=== PATIENT | male | born 1960 | race Caucasian/White ===

== ENCOUNTER → 2016-04-06 | Outpatient (CLI) | payer BC ==
[~2016-04-06] MED LIST: AMLODIPINE BESY10 MG PO; APAP500 PO; DIFLUCAN200 MG PO; HYDROCODONE-AP1 EAC6 PO; INVANZ 1GM/NS 101 GM IV; IRBESARTAN300 MG PO; LIPITOR10 MG PO; METOPROLOL SUCC50 MG PO
== END ==
LOC: CAT 06:32
DX: K65.1 Peritoneal abscess (principal); K57.90 Diverticulosis of intestine, part unspecified, without perforation or abscess without bleeding; I10 Essential (primary) hypertension; E78.00 Pure hypercholesterolemia, unspecified

== ENCOUNTER 2016-07-19 05:18 | Inpatient (IN) | payer BC ==
[~2016-07-19] VITALS: Ht 172.7 cm; Wt 110.3 kg
--- NOTE | ~2016-07-19 | O ---
[facility] [place] [address] OPERATIVE REPORT Name: DINORAH URIBE Room #: 200-I ADM IN M.R.#: [id number] Admission: 07/19/16 Attend Phys: Espinoza Stone MD Discharge: Date of : 64 Report #: [id number] THIS REPORT FOR: //name// CC: Keo Stone DATE OF SERVICE: 07/19/2016 PREOPERATIVE DIAGNOSES: Previous diverticulitis with perforation and abscess requiring multiple percutaneous drains and extensive antibiotic therapy. POSTOPERATIVE DIAGNOSES: Previous diverticulitis with perforation and abscess requiring multiple percutaneous drains and extensive antibiotic therapy. PROCEDURE: Laparoscopic sigmoid colectomy, laparoscopic primary suture repair of incarcerated umbilical hernia containing omentum. ANESTHESIA: General endotracheal anesthesia and local anesthetic. ESTIMATED BLOOD LOSS: 50 mL. SURGEON: Espinoza Stone MD CHEMICAL COMPOUNDER HELPER: Paul Matos MD and Alvaro Watts, medical student. ESTIMATED BLOOD LOSS: 50 mL. IV FLUIDS: See anesthesia record. URINE OUTPUT: 250 per Colindres catheter. DRAINS PLACED: None. FINDINGS: Indurated sigmoid colon with some scarring in the right lower abdomen to the anterior abdominal wall. End-to-end stapled anastomosis was performed. INDICATION FOR PROCEDURE: The patient is a very pleasant 55-year-old male patient with history of acute diverticulitis last year, requiring approximately 2 weeks of inpatient hospitalization as well as extensive outpatient IV antibiotic therapy and 2 separate percutaneous drains placed to control this infection at that time. He ultimately recovered and subsequent colonoscopy was unremarkable. The patient was desirous of sigmoid colectomy to prevent future episodes of acute diverticulitis. Detailed discussion of risks and benefits of the operation was held with the patient and all questions were answered to his satisfaction. Risks discussed included bleeding, pain, infection, anastomotic leak, stricture, recurrent diverticulitis, damage to surrounding structures [facility] [address] [place] [address] OPERATIVE REPORT Name: DINORAH URIBE Room #: 200-I [facility] IN ..#: [id number] Admission: 07/19/16 Attend Phys: Espinoza Stone MD Discharge: Date of : 64 Report #: [id number] such as small-bowel, colon, bladder, ureters, kidneys and other potentially unforeseen complications. Written informed consent was obtained. DESCRIPTION OF PROCEDURE: The patient was brought to the operating room and placed in a supine position. Timeout was taken to verify the patient's identity and to plan the procedure. SCDs were in place in the lower extremities bilaterally. Preoperative antibiotics were administered. The patient was placed in lithotomy position. Hair had been trimmed prior to bringing the patient back to the operating room from the intra-abdominal wall. Colindres catheter was placed in the operating room. Abdomen was sterilely prepped and draped in standard fashion. Right upper quadrant 5 mm incision was made after local anesthetic had been infiltrated. A 5-mm 0-degree laparoscope was utilized for direct optical entry. Pneumoperitoneum was created. Inspection of the viscera showed that no injury had occurred upon entry. A 5-mm subxiphoid port was placed in similar fashion after local anesthetic had been infiltrated. A right mid abdomen 12-mm port was placed in similar fashion. The omentum was noted to be adherent to the anterior abdominal wall as well as to the redundant sigmoid colon, which was looped over into the right lower quadrant. This was taken down using blunt dissection and Sonicision energy device down to the level of the pelvis. The anterior abdominal wall fat pad was also taken down toward the pelvis during this portion of the dissection. Once the omentum and colon had been adequately dissected free in the lower abdomen, the patient was placed in the Trendelenburg left side up position. A 5-mm left upper quadrant incision was also made and a 5-mm port was placed under direct visualization. The sigmoid colon was then freed from surrounding structures including the lateral peritoneal attachments namely the white line of Toldt from inferior to superior. The site of previous diverticulitis was carefully examined and was noted to be indurated without any obvious active infection. A site distal to this at approximately the rectosigmoid junction was selected and a window was made in the mesocolon at this location using the EnSeal device and Sonicision device as well as blunt dissection with a [place] dissector. Once the window had been made across this site, the distal transection was performed using Rosser linear cutting stapler with blue load 60-mm 2 firings. The mesocolon was then transected proximally using EnSeal device up to a site proximal to the diverticula. Careful examination of the colon was performed to verify that all diverticula were to be removed with the specimen as much as visually possible. A window was made in the mesocolon at the proximal transection site and Rosser linear cutting stapler was fired across the site. The mesocolon was further transected using EnSeal energy device. Specimen was then held in place with a grasper and the left upper quadrant 5-mm incision was enlarged to a 3-fingerbreadth diameter. The wound protector was placed in this site and specimen was removed from the left upper quadrant 3-fingerbreadth incision. The specimen was passed off for permanent analysis. Stitch was used to tamara distal. No obvious spillage was identified. Seal was placed over the wound protector and pneumoperitoneum was recreated. The descending colon was examined and this was freed up from further lateral [facility] [address] [place] [address] OPERATIVE REPORT Name: DINORAH URIBE Room #: 200-I ADM IN M.R.#: [id number] Admission: 07/19/16 Attend Phys: Espinoza Stone MD Discharge: Date of : 64 Report #: [id number] peritoneal attachments to create sufficient length that this lay easily in the pelvis next to the rectal stump. Sizer device was utilized to select a 33-mm EEA stapler, which was appropriately accommodate by the diameter of the rectum. The proximal transection margin was then brought out through the wound protector and electrocautery was utilized to create a colotomy. The Anvil was placed within this colostomy and was anchored in place using two 3-0 PDS purse-string sutures. This was placed back in the abdominal cavity and pneumoperitoneum was recreated. Collar Folder Operator then inserted the EEA stapler through the rectal canal and this was deployed through the rectal stump. The spike was then attached to the Anvil under direct vision after care was taken to ensure that no twisting of the descending colon had occurred. This was then fired and the stapler device along with the Anvil was removed from the anal canal. Examination of the anastomotic donut showed that 2 intact donuts had been removed. Inspection of the anastomotic site showed a small amount of oozing from the transected mesocolon, which was easily controlled with Sonicision energy device, but the anastomosis appeared well intact. Irrigation was placed in the pelvic cavity and the patient was placed in the reverse Trendelenburg position. Rigid sigmoidoscope was passed into the anal canal and insufflation of the colorectal anastomosis showed that no obvious air leak was visible. Further irrigation was then passed into the pelvic cavity and suctioned clear. Rigid sigmoidoscope was removed from the anal canal. Next, a PMI suture passer was utilized to close the small umbilical hernia, which the patient had complained of prior to the operation. This was approximately a 1-cm hernia defect at the level of the umbilicus that contained omentum that had been incarcerated and was easily visible upon beginning of the operation. This had been easily reduced with blunt traction with a grasper device. A stab incision was made at the umbilicus and #1 PDS [id number]-ej-[id number] suture was utilized to close this defect without difficulty. The 3-fingerbreadth left upper quadrant site was then closed using running #1 PDS in 2 layers. Insufflation was returned to the abdominal cavity and inspection from the anterior showed that this was well intact. The 12-mm port site in the right abdomen was removed and this site was closed at the level of the fascia using [id number]-[id number] #1 PDS suture as well. An area where the fat pad had been taken down extensively in the pelvis was tacked to the anterior abdominal wall using absorbable tacks to prevent herniation of bowel contents anterior to that fat pad. The anastomosis was again carefully examined and was noted to be well intact. Tisseel thrombin agent was then sprayed volume of 10 mL to cover the anastomosis. Hemostasis was again carefully verified. Pneumoperitoneum was then relieved and the 5-mm ports were then discontinued. The skin was closed at each of the incision sites using a skin marcela and sterile dressings were applied superficial to these. At this point, the case was ended, all instrumentation had been extracted and accounted for. All counts were correct [facility] [address] [place] [address] OPERATIVE REPORT Name: ECTON,DINORAH KARLA Room #: 200-I ADM IN M.R.#: [id number] Admission: 07/19/16 Attend Phys: Espinoza Stone MD Discharge: Date of : 64 Report #: [id number] per nursing report. The patient was extubated and taken to the postoperative care unit in stable condition. <ELECTRONICALLY SIGNED> By: Espinoza Stone MD 07/21/16 1136 1442 1621 Espinoza Stone MD /nt
--- NOTE | ~2016-07-19 | S ---
[facility] [place] [address] [place] [address] SURGICAL PATH RPT PROCEDURE Name: ABAD URIBE Room #: 200-I ADM IN M.R.#: [id number] Admission: 07/19/16 Date of : 64 Discharge: Report #: [id number] Path Case #: [id number] PATHOLOGY REPORT COLLECTION DATE: 07/19/2016 RECEIVED DATE: 07/19/2016 SUBMITTING PHYS: Dr. Espinoza Stone OTHER PHYS: Dr. Paul Joe SPECIMEN(S) RECEIVED: A.Sigmoid colon B.Anastomotic rings * * * * * * * * * * * * FINAL DIAGNOSIS: A. "Sigmoid colon," resection: - Diverticulosis with focal reactive changes, subserosal fibrosis, and serosal fibrous adhesions; history of diverticulitis. - Surgical margins without significant inflammation. B. "Anastomotic rings," re-anastomosis: - Colonic mucosa, submucosa, and muscular wall with reactive changes and vascular congestion. (CLW:; d/t: 07/21/16) PATHOLOGIST: Yadira Goodrich M.D. REPORT ELECTRONICALLY SIGNED BY: Yadira Goodrich M.D. DATE/TIME: 07/21/2016 16:23 * * * * * * * * * * * * GROSS PATHOLOGY: A. The specimen is received in formalin labeled "Abad Uribe, sigmoid colon, suture rodriguez distal end". Received is an oriented segment of colon measuring 17.8 cm in length and ranging in diameter from 1.7 to 3.2 cm. Both margins are stapled closed and a suture is present at one margin designating this as the distal aspect. The attached pericolic fat measures up to 3.8 cm in thickness. The serosal surface is pink-arango and smooth to slightly shaggy in appearance. The specimen is opened along the antimesenteric line to reveal light arango mucosa with normal architectural folds. Multiple diverticula are present; however, inflammation or hemorrhage is not grossly identified. Sectioning through the attached pericolic fat reveals no readily identifiable lymph nodes. The specimen is submitted representatively as follows: A1 proximal margin A2 distal margin [facility] [place] [address] SURGICAL PATH RPT PROCEDURE Name: ABAD URIBE Room #: 200-I ADM IN .R.#: [id number] Admission: 07/19/16 Date of : 64 Discharge: Report #: [id number] Path Case #: [id number] A3-A4 sales support representative sections of diverticula. B. The specimen is received in formalin labeled "Abad Uribe, anastomotic rings". Received are two anastomotic rings measuring 2.8 x 2.1 x 1.4 and 2.9 x 2.8 x 1.2 cm in greatest dimensions. Bushwalking Guide sections are submitted in cassette B1. (CAA; 07/20/2016) CLINICAL HISTORY: Diverticulitis, umbilical hernia INITIAL CPT CODE(S): A; 32578 B; 36628 Professional services performed by [facility] at [address] , [place] [address] Technical services performed by [facility] at [address] [place] [address], [address], [place] [address]. [facility] [address] [place] [address] PHONE: [phone] DIRECTOR: Eddy Woodard M.D. * * * END OF REPORT * * *
[~2016-07-19 05:18] MED LIST changes: +CO Q-10100 MG PO; +FLAGYL500 MG PO; +FLAX OIL1000 MG PO; +VITAMIN D31000 UNI2 PO
[2016-07-19 07:35] LABS: HEMATOCRIT 42.6 % (42.0-52.0); HEMOGLOBIN 14.9 gm/dL (14.0-18.0)
[2016-07-19 07:43] VITALS: BP 149/89
[2016-07-19 13:35] VITALS: BP 142/95
[2016-07-19 16:45] VITALS: BP 136/85
[2016-07-19 19:24] VITALS: BP 126/78
[2016-07-19 23:34] VITALS: BP 107/69
[2016-07-20 03:03] VITALS: BP 120/70
[2016-07-20 08:09] LABS: HEMOGLOBIN 13.1 gm/dL (14.0-18.0); MCH 30.8 pg (26.0-34.0); MCHC 34.4 g/dL (28.0-37.0); MCV 89.6 fL (80.0-100.0); RBC 4.24 mil/uL (4.50-6.00); RDW 13.8 % (10.5-14.5); WBC 12.2 thou/uL (4.0-11.0)
[2016-07-20 08:32] VITALS: BP 128/78
[2016-07-20 08:43] LABS: ALBUMIN 2.9 g/dL (3.4-5.0); CALCIUM 7.9 mg/dL (8.5-10.1); CREATININE 1.1 mg/dL (0.7-1.3); MAGNESIUM 2.2 mg/dL (1.8-2.4); PHOSPHORUS 3.3 mg/dL (2.5-4.9); POTASSIUM 4.1 mmol/L (3.5-5.1); TOTAL BILIRUBIN 0.7 mg/dL (<0.1-1.0); TOTAL PROTEIN 5.9 g/dL (6.4-8.2)
[2016-07-20 12:08] VITALS: BP 132/81
[2016-07-20 16:37] VITALS: BP 117/73
[2016-07-20 19:08] VITALS: BP 126/75
[2016-07-21 02:45] VITALS: BP 133/84
[2016-07-21 03:26] LABS: HEMATOCRIT 34.5 % (42.0-52.0); MCH 31.3 pg (26.0-34.0); MCHC 34.6 g/dL (28.0-37.0); MCV 90.5 fL (80.0-100.0); RBC 3.81 mil/uL (4.50-6.00); RDW 14.2 % (10.5-14.5); WBC 7.3 thou/uL (4.0-11.0)
[2016-07-21 03:55] LABS: ALBUMIN 2.8 g/dL (3.4-5.0); CALCIUM 8.2 mg/dL (8.5-10.1); CREATININE 1.1 mg/dL (0.7-1.3); POTASSIUM 3.7 mmol/L (3.5-5.1); TOTAL BILIRUBIN 0.4 mg/dL (<0.1-1.0); TOTAL PROTEIN 5.8 g/dL (6.4-8.2)
[2016-07-21 10:15] VITALS: BP 146/79
[2016-07-21] MEDS ORDERED: COLACE 100 MG100 MG PO (11:28)
[2016-07-21] MEDS ORDERED: IBUPROFEN 800800 M1 PO (11:28)
[2016-07-21] MEDS ORDERED: NEURONTIN 300300 M1 PO (11:28)
[2016-07-21] MEDS ORDERED: HYDROCODON-ACE1 EAC7 PO (11:28)
[2016-07-21 13:19] VITALS: BP 146/79
[2016-07-21 16:17] VITALS: BP 146/79
[2016-07-21 16:36] VITALS: BP 146/79
== END 2016-07-21 16:30 | disposition home or self-care (01) | DRG 330 ==
LOC: TBA 05:18 → OR 05:18 → 2N 13:44 → OR 14:44 → 2N 18:09
PROVIDERS: Otolaryngology
PROC: 0WQF4ZZ Repair Abdominal Wall, Percutaneous Endoscopic Approach (ICD-10-PCS; principal; 2016-07-19)
PROC: 0DBN4ZZ Excision of Sigmoid Colon, Percutaneous Endoscopic Approach (ICD-10-PCS; principal; 2016-07-19)
DX: K57.20 Diverticulitis of large intestine with perforation and abscess without bleeding (principal); K42.0 Umbilical hernia with obstruction, without gangrene; I10 Essential (primary) hypertension; F10.20 Alcohol dependence, uncomplicated; Y90.9 Presence of alcohol in blood, level not specified; E78.5 Hyperlipidemia, unspecified; F17.200 Nicotine dependence, unspecified, uncomplicated; E66.9 Obesity, unspecified; Z79.899 Other long term (current) drug therapy; Z82.49 Family history of ischemic heart disease and other diseases of the circulatory system; Z68.37 Body mass index [BMI] 37.0-37.9, adult
CPT/HCPCS: 10194; 50010; 50101; 50221; 50249; 50386; 50555; 50558; 50739; 50740; 50804; 50944; 50962; 50984; 51398; 51412; 51437; 51489; 52182; 52265; 54022; 54118; 56525; 56526; 56530; 57092; 62110; 62900; 70005

== ENCOUNTER 2020-11-13 12:03 | Emergency (ER) | payer BC ==
[~2020-11-13] VITALS: Ht 172.7 cm; Wt 111.1 kg
[~2020-11-13 12:03] MED LIST changes: +COLACE 100 MG100 MG PO; +HYDROCODON-ACE1 EAC7 PO; +IBUPROFEN 800800 M1 PO; +NEURONTIN 300300 M1 PO
[2020-11-13 12:41] LABS: ABSOLUTE NEUTROPHILS 6.8 thou/uL (1.4-8.2); EOSINOPHILS 0.7 % (0.0-3.0); HEMATOCRIT 44.9 % (42.0-52.0); HEMOGLOBIN 15.4 gm/dL (14.0-18.0); LYMPHOCYTES 17.7 % (24.0-44.0); MCHC 34.3 g/dL (28.0-37.0); MCV 93.2 fL (80.0-100.0); MONOCYTES 9.5 % (1.0-8.0); PLATELET COUNT 259 thou/uL (150-400); POLYS 71.1 % (36.0-66.0); RBC 4.82 mil/uL (4.50-6.00); RDW 13.3 % (10.5-14.5); WBC 9.6 thou/uL (4.0-11.0)
[2020-11-13 13:01] LABS: ANION GAP 9 mmol/L (7-16); BUN 16 mg/dL (7-18); CALCIUM 9.2 mg/dL (8.5-10.1); CHLORIDE 103 mmol/L (98-107); CO2 28 mmol/L (21-32); CREATININE 1.3 mg/dL (0.7-1.3); GLUCOSE 113 mg/dL (74-106); POTASSIUM 4.1 mmol/L (3.5-5.1); SODIUM 140 mmol/L (136-145)
[2020-11-13 13:16] LABS: MAGNESIUM 2.1 mg/dL (1.8-2.4); SGOT 24 U/L (15-37); SGPT 43 U/L (16-63); TOTAL PROTEIN 7.1 g/dL (6.4-8.2); TROPONIN-I <0.06 ng/mL (<0.06)
[2020-11-13 14:37] VITALS: BP 134/82
[2020-11-13] MEDS ORDERED: ELIQUIS5 MG PO (14:53)
--- NOTE | 2020-11-14 09:31 | EKG ---
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 11/14/20 0931 1220 1220 Andi Calloway MD, FACC /EPI
--- NOTE | 2020-11-14 09:32 | EKG ---
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
== END 2020-11-13 15:00 | disposition home or self-care (01) ==
LOC: ER 12:03
PROVIDERS: Emergency Medicine
DX: I48.91 Unspecified atrial fibrillation (principal); Z20.822 Contact with and (suspected) exposure to COVID-19; I10 Essential (primary) hypertension; E78.00 Pure hypercholesterolemia, unspecified; Z79.899 Other long term (current) drug therapy

== ENCOUNTER → 2020-12-05 | Outpatient (CLI) | payer BC ==
[~2020-12-05] MED LIST changes: +ELIQUIS5 MG PO
== END ==
LOC: SJCVCIMAG 07:43
PROVIDERS: ATTEND Internal Medicine
DX: I77.819 Aortic ectasia, unspecified site (principal); I48.91 Unspecified atrial fibrillation; R06.00 Dyspnea, unspecified; I48.0 Paroxysmal atrial fibrillation; I10 Essential (primary) hypertension; E78.5 Hyperlipidemia, unspecified; G47.33 Obstructive sleep apnea (adult) (pediatric); F17.210 Nicotine dependence, cigarettes, uncomplicated; Z88.8 Allergy status to other drugs, medicaments and biological substances; Z72.89 Other problems related to lifestyle; Z79.899 Other long term (current) drug therapy